=== PATIENT | female | born 1985 | race Caucasian/White ===

== ENCOUNTER → 2016-11-20 | Outpatient (CLI) | payer OTHER ==
[~2016-11-20] MED LIST: ACET-749 PO; IBUP-1427 PO; PRENTAB26 PO
== END | disposition home or self-care (01) ==
LOC: C.PAPS 08:46
PROVIDERS: ATTEND Physician Assistant
DX: Z12.4 Encounter for screening for malignant neoplasm of cervix (principal)

== ENCOUNTER → 2017-03-28 | Outpatient (CLI) | payer OTHER ==
--- NOTE | 2017-03-28 14:55 | MAMMOGRAPHY REPORT ---
UNILATERAL RIGHT DIGITAL DIAGNOSTIC MAMMOGRAM TOMOSYNTHESIS WITH CAD AND TARGETED RIGHT ULTRASOUND: CLINICAL HISTORY: The patient felt a palpable right breast lump approximately 2 weeks ago. She felt that it has fluctuated in size over the past 2 weeks and has been intermittently painful. TECHNIQUE: Breast tomosynthesis in addition to standard 2D mammography was performed. Current study was also evaluated with a Computer Aided Detection (CAD) system. Right CC and MLO 2-D and tomosynthe sis images and spot magnification right cc and ML views were obtained. COMPARISON: Comparison is made to exam dated: 03/28/2017 ultrasound - [facility]. BREAST COMPOSITION: The tissue of the right breast is extremely dense, which lowers the sensitivity of mammography. FINDINGS: First, targeted ultrasound was performed of the area of the palpable lump pointed out by t zhang patient, in the right breast at 10:00 centered around 6 cm from the nipple. At the site of the pa lpable lump there are numerous small round/oval anechoic masses consistent with cysts, the largest me asuring 9 mm. Many of the cysts contain internal echogenic foci which likely represent calcification s. No suspicious solid masses were evident in this region. Given the presence of possible calcifica tions on ultrasound, mammograms were obtained to further evaluate. A triangle marker [place] the site of the palpable lump in the right upper outer quadrant. There are l oosely grouped calcifications in the right upper outer quadrant in the region of the palpable lump, w ith other similar-appearing calcifications scattered elsewhere in the right breast, predominantly in the anterior superior breast. Many of the calcifications demonstrate layering on the lateral view, c onsistent with benign milk of calcium. These calcifications correspond with the echogenic foci seen within cysts on ultrasound. Findings are benign and compatible with milk of calcium/fibrocystic chaves ges. No suspicious masses, calcifications, or areas of architectural distortion are noted in the rig ht breast. IMPRESSION: ACR BI-RADS CATEGORY 2: BENIGN, TARGETED ULTRASOUND ACR BI-RADS CATEGORY 2: BENIGN Multiple small benign simple cysts seen at the site of the palpable lump in the right 10:00 breast. Many of the cysts contain internal calcifications consistent with milk of calcium. Overall, findings are benign and compatible with fibrocystic changes. There is no mammographic or targeted sonographic evidence of malignancy. Recommend clinical follow-up. The patient has been verbally notified of th e results. Approximately 10% of breast cancers are not detected with mammography. A negative mammographic report should not delay biopsy if a clinically suggestive mass is present. Tana Faustin M.D. ah/:03/28/2017 14:42:00 Rn Nursery: Andrew BOYLE(Veda)(M), [facility] letter sent: Normal 1/2 BI-RADS Code: ACR BI-RADS Category 2: Benign Ultrasound BI-RADS: ACR BI-RADS Category 2: Benign
== END | disposition home or self-care (01) ==
LOC: C.MAMM 12:50
PROVIDERS: ATTEND Physician Assistant
DX: N60.01 Solitary cyst of right breast (principal)